=== PATIENT | female | born 1970 | race Caucasian/White ===

== ENCOUNTER 2016-05-08 08:37 | Emergency (ER) | payer MEDICAID ==
--- NOTE | 2016-05-08 09:09 | ED Physician Chart ---
Chief Complaint/HPI - Patient Information Date Seen:: 05/08/16 Time Seen:: 08:47 Chief Complaint:: LEFT-sided LOW BACK PAIN, chronic History of Present Illness:: This 45-year-old female reports having an exacerbation of her chronic low back pain. The patient has been worked up for this pain by her primary care physician and labeled as fibromyalgia. The pain is made worse by movement and walking. The pain is sharp and rated as a 6/10 in severity. The patient states that she is not here for pain medication but wants to know why she has the chronic pain. She has some improvement when taking NSAIDs. There is no associated weakness or numbness in the lower extremities. The patient has no associated abdominal pain. There are no issues of incontinence or urinary retention. The patient has had no recent fever, chills, diaphoresis, dysuria or urinary frequency. Allergies:: Allergies Allergy/AdvReac Type Severity Reaction Status Date / Time amoxicillin Allergy Verified 11/18/15 20:41 Penicillins [PCN] Allergy Verified 11/18/15 20:41 Sulfa (Sulfonamide Allergy Verified 11/18/15 20:41 Antibiotics) Review of Systems - Review of Systems General/Constitutional: No fever, No chills, No weakness, No diaphoresis, No edema Skin: No skin lesions, No rash Head: No headache, No light-headedness Eyes: No loss of vision, No pain, No diplopia ENT: No earache, No sore throat Neck: No neck pain, No stiffness, No mass noted [employer] Project [employer]: No abnormal vaginal bleed, Other (LMP was 2 weeks ago and was unremarkable.) Musculoskeletal: Back pain Endocrine: No polyuria, No polydipsia Psychiatric: Anxiety, No suicidal ideation Hematopoietic: No bruising, No lymphadenopathy Allergic/Immuno: No urticaria, No angioedema Neurological: No syncope, No focal symptoms, No weakness, No headache, No seizure, No confusion, No vertigo Past Medical History - Past Medical History Past Medical History: Other (fibromyalgia.) Social History: Non Smoker, No Drug Use, Other (is engaged to be .) Family Medical History - Family Member Mother History Unknown: Yes Physical Exam - Physical Examination General/Constitutional: Awake, Well-developed, well-nourished, Alert, GCS 15, Non-toxic appearing, Ambulatory Other Gen/Cons comments:: MILD DISTRESS FROM COMPLAINED OF BACK PAIN Eyes: Lids, conjuctiva normal, PERRL, EOMI Other Eyes comments:: SCLERA NON-ICTERIC. NO NYSTAGMUS Skin: Nl inspection, No rash, No skin lesions, No ecchymosis, No lymphadenopathy ENMT: External ears, nose nl, Lips, teeth, gums nl, Oropharynx nl, Tonsils nl Neck: Nontender, Full ROM w/o pain, No JVD, No nuchal rigidity, No mass Other Neck comments:: NO THYROMEGALY Respiratory: Nl effort/Exclusion, Clear to Auscultation, No Wheeze/Rhonchi/Rales Cardio Vascular: RRR, No murmur, gallop, rubs (GOOD PULSES IN ALL 4 EXTREMITIES) , NL S1 S2 GI: No tenderness/rebounding/guarding, No organomegaly, No hernia, Normal BS's, Nondistended, No mass/bruits, No McBurney tenderness (RECTAL EXAM DEFERED AT MY DISCRETION) : No CVA tenderness Extremities: No tenderness or effusion, Full ROM, normal strength in all extremities, No edema (NO DEFORMITIES. NO CALF TENDERNESS. NEGATIVE PIERCE'S SIGN) Neuro/Psych: Alert/oriented Other Neuro/Psych comments:: SENSORY INTACT TO LIGHT TOUCH IN ALL 4 EXTREMITIES. NORMAL MOTOR IN ALL 4 EXTREMITIES. NORMAL FINGER-NOSE AND HEEL-YADAV TESTING. Other Misc comments:: MILD TENDERNESS TO PALPATION IN THE LT PARASPINOUS REGION AT THE T-9/10 LEVEL. NO SPINAL TENDERNESS IN EITHER THE T-SPINE OR L-SPINE LEVELS. Labs/Radiology/EKG Results - Lab Results Results: no radiographic or laboratory studies indicated. Assessment - Assessment General Assessment: CASE SUMMARY: this 45-year-old female with a history of chronic back pain presents with an acute exacerbation in the left upper back. The patient has had prior x-ray studies which have shown no fractures or significant degeneration. The patient has no focal neurologic deficit and no risk factors for spinal epidural abscess. On examination there is mild tenderness over the lower thoracic region in the back area. Breath sounds are normal. There is no focal sensory or motor deficit. I discussed the case with the on-call radiologist and he suggested the patient returned to her primary care physician and request an MR study. Indications for return to the emergency department included any onset of neurologic symptoms or significant increase in pain. Also In the onset of fever or chills or urologic symptoms is an indication for recheck. Discharged in stable condition. MDM DDX FOR ACUTE EXACERBATION OF CHRONIC BACK PAIN: NOT Epidural abscess based on the patient's history and examination. NOT Aortic dissection based on the patient's history and physical examination. NOT Pyelonephritis based on the patient's history and physical examination. NOT AAA Based on the patient 's history and examination. NOT Acute traumatic injury based on the patient's history. ED Septic Shock - . Is Septic Shock (SBP<90, OR Lactate>4 mmol\L) present?: No Reassessment (Disposition) - Reassessment Reassessment Condition:: Unchanged - Diagnosis Diagnosis:: ACUTE EXACERBATION OF CHRONIC BACK PAIN. ED Discharge Plan - Patient Disposition Admit/Discharge/Transfer: PT DISCHARGED HOME Condition at Disposition: Stable Instructions: Chronic Back Pain Additional Instructions: Follow up with PMD in 1-3 days. Accepting Physician: Mariaelena Grady [Other] - 1-3 Days Forms: Work Release Form
== END 2016-05-08 09:50 | disposition home or self-care (01) ==
LOC: ER 08:37
DX: G89.29 Other chronic pain (principal); M54.5 Low back pain; Z88.0 Allergy status to penicillin; Z88.2 Allergy status to sulfonamides
CPT/HCPCS: Z7502

== ENCOUNTER 2016-06-08 13:28 | Emergency (ER) | payer MEDICAID ==
[2016-06-08 14:13] VITALS: BP 100/64
--- NOTE | 2016-06-08 15:46 | ED Physician Chart ---
Chief Complaint/HPI - Patient Information Date Seen:: 06/08/16 Time Seen:: 15:06 Chief Complaint:: back pain History of Present Illness:: this is a 45 yr old female with neck and lower back pain with difficulty moving because of the pain. she admits to old trauma but no recent trauma. she states that there area surface area that hurt when she moves. Allergies:: Allergies Allergy/AdvReac Type Severity Reaction Status Date / Time amoxicillin Allergy Verified 11/18/15 20:41 Penicillins [PCN] Allergy Verified 11/18/15 20:41 Sulfa (Sulfonamide Allergy Verified 11/18/15 20:41 Antibiotics) Vitals:: Vital Signs - 8 hr 06/08/16 06/08/16 14:04 14:06 Temp 98.1 F HR 78 RR 15 BP 100/64 100/64 O2 Sat % 98 Historian:: Patient Review:: Nurse's Note Reviewed Review of Systems - Review of Systems General/Constitutional: No fever, No chills, Weight loss, No weakness, No diaphoresis, No edema, No loss of appetite Skin: No skin lesions, No rash, No bruising Head: No headache, No light-headedness Eyes: No loss of vision, No pain, No diplopia ENT: No earache, No nasal drainage, No sore throat, No tinnitus Neck: Neck pain, No swelling, No thyromegaly, Stiffness, No mass noted Cardio Vascular: No chest pain, No palpitations, No PND, No orthopnea, No edema Pulmonary: No SOB, No cough, No sputum, No wheezing GI: No nausea, No vomiting, No diarrhea, No pain, No melena, No hematochezia, No constipation, No hematemesis G/U: No dysuria, No frequency, No hematuria Musculoskeletal: Back pain, No muscle pain Endocrine: No polyuria, No polydipsia Psychiatric: No prior psych history, No depression, No anxiety, No suicidal ideation Hematopoietic: No bruising, No lymphadenopathy Allergic/Immuno: No urticaria, No angioedema Neurological: No syncope, No focal symptoms, Weakness, No paresthesia, No headache, No seizure, No dizziness, No confusion, No vertigo Family Medical History - Family Member Mother History Unknown: Yes Ethnicity: Labs/Radiology/EKG Results - Lab Results Results: Laboratory Results - last 24 hr 06/08/16 06/08/16 06/08/16 14:30 14:30 15:54 WBC 4.5 L RBC 4.16 Hgb 12.8 Hct 37.6 MCV 90.4 MCH 30.8 MCHC Differential 34.1 RDW 11.9 Plt Count 172 MPV 9.7 Neutrophils % 56.0 Lymphocytes % 35.3 Monocytes % 7.2 Eosinophils % 0.9 Basophils % 0.6 Sodium Potassium Chloride Carbon Dioxide Anion Gap BUN Creatinine Est GFR ( Amer) Est GFR (Non-Af Amer) BUN/Creatinine Ratio Glucose Calcium Total Bilirubin AST ALT Alkaline Phosphatase Total Protein Albumin Globulin Albumin/Globulin Ratio TSH Urine Source CLEAN C Urine Color YELLOW Urine Clarity CLEAR Urine pH 7.5 Ur Specific [place] 1.020 Urine Protein 30 H Urine Glucose (UA) NEGATIVE Urine Ketones NEGATIVE Urine Blood NEGATIVE Urine Nitrate NEGATIVE Urine Bilirubin NEGATIVE Urine Urobilinogen 0.2 Ur Leukocyte Esterase NEGATIVE Urine RBC NONE SEEN Urine WBC NONE SEEN Ur Epithelial Cells NONE SEEN Urine Bacteria NONE SEEN Urine Opiates Screen NEGATIVE Ur Barbiturates Screen NEGATIVE Ur Phencyclidine Scrn NEGATIVE Amphetamines Screen NEGATIVE U Methamphetamines Scrn NEGATIVE U Benzodiazepines Scrn NEGATIVE U Cocaine Metab Screen NEGATIVE U Cannabinoids Screen NEGATIVE 06/08/16 06/08/16 15:54 15:54 WBC RBC Hgb Hct MCV MCH MCHC Differential RDW Plt Count MPV Neutrophils % Lymphocytes % Monocytes % Eosinophils % Basophils % Sodium 135 L Potassium 3.8 Chloride 105 Carbon Dioxide 27.1 Anion Gap 6.7 L BUN 16 Creatinine 0.6 Est GFR ( Amer) > 60.0 Est GFR (Non-Af Amer) > 60.0 BUN/Creatinine Ratio 26.7 Glucose 104 Calcium 10.0 Total Bilirubin 0.4 AST 17 ALT 14 Alkaline Phosphatase 39 Total Protein 7.6 Albumin 4.7 Globulin 2.9 Albumin/Globulin Ratio 1.6 TSH 1.72 Urine Source Urine Color Urine Clarity Urine pH Ur Specific [place] Urine Protein Urine Glucose (UA) Urine Ketones Urine Blood Urine Nitrate Urine Bilirubin Urine Urobilinogen Ur Leukocyte Esterase Urine RBC Urine WBC Ur Epithelial Cells Urine Bacteria Urine Opiates Screen Ur Barbiturates Screen Ur Phencyclidine Scrn Amphetamines Screen U Methamphetamines Scrn U Benzodiazepines Scrn U Cocaine Metab Screen U Cannabinoids Screen - Radiology Results Results: ct scan c-spine and ls spine = nad ED Septic Shock - . Is Septic Shock (SBP<90, OR Lactate>4 mmol\L) present?: No - <6hrs of presentation: Vital Signs: Vital Signs - 8 hr 06/08/16 06/08/16 14:04 14:06 Temp 98.1 F HR 78 RR 15 BP 100/64 100/64 O2 Sat % 98 Reassessment (Disposition) - Reassessment Reassessment Condition:: Unchanged - Diagnosis Diagnosis:: CERVICAL DISC DISEASE C4-C5 LUMBOSCARAL PAIN - Aftercare/Follow up Instructions Aftercare/Follow-Up Instructions:: Counseled pt regarding lab results/diagnosis & need follow up, Refer to Discharge Instructions, Counseled pt & family regarding lab results/diagnosis & need follow up - Patient Disposition Discharge/Transfer:: Home Condition at Disposition:: Improved ED Discharge Plan - Patient Disposition Admit/Discharge/Transfer: PT DISCHARGED HOME Condition at Disposition: Stable
[2016-06-08 16:19] LABS: AMPHETAMINE URINE NEGATIVE (NEGATIVE); BARBITURATES URINE NEGATIVE (NEGATIVE)
[2016-06-08 16:23] LABS: ALB/GLOB RATIO 1.6 (1.0-1.8); ALKALINE PHOSPHATASE 39 U/L (34-104); ANION GAP 6.7 (7.0-16.0); BILIRUBIN,TOTAL 0.4 mg/dL (0.3-1.0); BUN - UREA NITROGEN 16 mg/dL (7-25); BUN/CREATININE RATIO 26.7; CARBON DIOXIDE 27.1 mEq/L (21.0-31.0); CHLORIDE 105 mEq/L (98-107); CREATININE - SERUM 0.6 mg/dL (0.6-1.2); GLUCOSE 104 mg/dL (70-105); POTASSIUM SERUM 3.8 mEq/L (3.5-5.1); SGOT 17 U/L (13-39); SGPT/ALT 14 U/L (7-52); SODIUM SERUM 135 mEq/L (136-145)
[2016-06-08 16:46] LABS: % BASOPHILS 0.6 % (0.0-2.0); % EOSINOPHILS 0.9 % (0.0-5.0); % LYMPHOCYTES 35.3 % (20.0-50.0); % MONOCYTES 7.2 % (2.0-10.0); HEMATOCRIT 37.6 % (35.0-45.0); HEMOGLOBIN 12.8 gm/dL (11.7-15.5); MEAN CELL VOLUME 90.4 fl (81-100); MEAN CORPUSCULAR HEMOGLOBIN 30.8 pg (27.0-31.0); MEAN CORPUSCULAR HGB CONC 34.1 pg (28.0-36.0); MEAN PLATELET VOLUME 9.7 fl; NEUTROPHILE ABSOLUTE 2.6 Th/cmm (1.8-8.0); PLATELET COUNT 172 Th/cmm (150-400); RED BLOOD COUNT 4.16 Mil/cmm (3.80-5.10); RED CELL DISTRIBUTION WIDTH 11.9 % (11.5-20.0); WHITE BLOOD COUNT 4.5 Th/cmm (4.8-10.8)
[2016-06-08 17:12] LABS: URINE BILIRUBIN NEGATIVE (NEGATIVE); URINE COLOR YELLOW; URINE GLUCOSE (UA) NEGATIVE (NEGATIVE); URINE KETONE NEGATIVE (NEGATIVE)
[2016-06-08 17:13] LABS: URINE BACTERIA NONE SEEN /hpf (NONE SEEN); URINE BLOOD NEGATIVE (NEGATIVE); URINE EPITHELIAL CELLS NONE SEEN /lpf (FEW); URINE PH 7.5; URINE PROTEIN 30 mg/dL (NEGATIVE); URINE RBC NONE SEEN /hpf (0-5); URINE UROBILINOGEN 0.2 E.U./dL (0.2 - 1.0); URINE WBC NONE SEEN /hpf (0-5)
--- NOTE | 2016-06-09 09:39 | Diagnostic Imaging Report ---
CT scan cervical spine HISTORY: Pain Total DLP equals 472 CTDI equals 20.7 Axial sections were obtained through the cervical spine. Additional sagittal and coronal reformatted images are provided. There is slight reversal of the cervical lordosis that may be associated with spasm. Degenerative changes with narrowing of the interspace seen at the C5-6 level. Hypertrophic spur formation seen about the vertebral endplates. Spur formation results in a mild extradural indentation on the anterior spinal canal at this level. Small spur formation also noted at the C6-7 level. No acute abnormalities. No fractures. The prevertebral soft tissues appear normal. IMPRESSION: 1. No acute abnormalities 2. Degenerative changes
--- NOTE | 2016-06-09 09:41 | Diagnostic Imaging Report ---
CT scan lumbar spine HISTORY: Pain Total DLP equals 788 CTDI equals 25.5 Axial sections were obtained through the lumbar spine. Additional sagittal and coronal reformatted images are provided. There is narrowing of the L5-S1 disc space. Minimal spur formation noted about the endplates at L3, L4, and L5. Alignment is normal. No acute bony abnormalities. No fractures. No other obvious extradural abnormalities. IMPRESSION: 1. No acute abnormalities 2. Mild degenerative changes
== END 2016-06-08 18:45 | disposition home or self-care (01) ==
LOC: ER 13:28
DX: M54.2 Cervicalgia (principal); M54.5 Low back pain; Z88.0 Allergy status to penicillin; Z88.2 Allergy status to sulfonamides
CPT/HCPCS: 99285; 96374; 72125; 72131; 36415; 80300; 84443; 85025; 81001; 81025; 80053; 87040 ×2; J1885